=== PATIENT | female | born 1940 | race Caucasian/White ===

== ENCOUNTER 2022-08-03 11:33 | Emergency (ER) | payer OTHER, MEDICARE ==
[2022-08-03 11:46] VITALS: BP 143/76; PULSE 87; RESP 18; TEMP 97.6; BMI 18.8
[2022-08-03 12:13] LABS: HEMATOCRIT 41.2 % (32.4-45.2); HEMOGLOBIN 14.4 G/dL (10.7-15.3); MCH 32.2 pg (25.7-33.7); MEAN PLT VOLUME 7.2 fl (7.5-11.1); PLATELET COUNT 346.5 10^3/uL (134-434); RBC 4.48 10^6/uL (3.60-5.2); RDW 14.1 % (11.6-15.6); WHITE BLOOD COUNT 7.8 10^3/uL (4.0-10.8)
[2022-08-03 12:17] LABS: INR 1.09 (0.83-1.09); PROTHROMBIN TIME (PATIENT) 12.5 SEC (9.7-13.0)
[2022-08-03 12:24] LABS: BILIRUBIN,TOTAL 0.6 mg/dl (0.2-1); CALCIUM 9.5 mg/dl (8.5-10); CREATININE 0.9 mg/dl (0.55-1.3); TOT PROT 6.9 g/dl (6.4-8.2)
== END 2022-08-03 13:40 | disposition home or self-care (01) ==
LOC: FER 11:33
DX: R94.31 Abnormal electrocardiogram [ECG] [EKG] (principal)
CPT/HCPCS: 36415; 71045-TC-FY; 80053; 84484; 85027; 85610; 93005; 99285-25